=== PATIENT | male | born 1985 | race Caucasian/White ===

== ENCOUNTER 2020-04-26 16:53 | Emergency (ER) | payer BC ==
--- NOTE | 2020-04-26 17:06 | PDOC ---
Rapid Medical Evaluation Time Seen by Provider: 04/26/20 16:59 Medical Evaluation: Allergies Allergy/AdvReac Type Severity Reaction Status Date / Time No Known Allergies Allergy Verified 12/13/14 09:11 04/26/20 17:04 I performed a brief in-person evaluation of this patient. Pt is a 35 y/o male who presents to the ED because he swallowed a toothpick about 24 hours ago. He states he is started to have some pain in his Left upper abdomen now. He denies blood in stool or vomiting blood. Pt states the pain started a few hours ago. Pertinent physical exam findings: No reproducible tenderness to palpation I have ordered the following: abd flat and upright Patient to proceed to ED for further evaluation. Discharge Disposition - Diagnosis Swallowed foreign body - Referrals - Patient Instructions - Post Discharge Activity
[2020-04-26 17:09] VITALS: BP 134/90; PULSE 76; TEMP 98.8; BMI 25.0
--- NOTE | 2020-04-26 17:41 | PDOC ---
History of Present Illness - General Chief Complaint: Foreign Body (FB) Stated Complaint: FOREIGN BODY Time Seen by Provider: 04/26/20 16:59 History Source: Patient Exam Limitations: No Limitations - History of Present Illness Initial Comments: 04/26/20 17:39 35-year-old male presents to ED with left upper abdominal pain. Patient discussed that he swallowed a toothpick last night and is concerned due to the discomfort. Patient states has had no blood in his stool, periods of nausea, or difficulty breathing. Is this a multiple visit Asthma Patient?: No Timing/Duration: 24 hours Severity: moderate Associated Symptoms: denies: nausea/vomiting Past History - Travel History Traveled outside of the country in the last 30 days: No Close contact w/someone who was outside of country & ill: No - Medical History Allergies/Adverse Reactions: Allergies Allergy/AdvReac Type Severity Reaction Status Date / Time No Known Allergies Allergy Verified 04/26/20 17:05 COPD: No - Psycho-Social/Smoking History Patient Lives Alone: No Lives with/in: spouse/SO Smoking History: Never smoked - Substance Abuse Hx (Audit-C & DAST Scrn) How often the patient has a drink containing alcohol: 2-4 times / month Score: In Men: 4 or > Positive; In Women: 3 or > Positive: 2 Screen Result (Pos requires Nsg. Audit-10AR): Negative In the last yr the pt used illegal drug/Rx for NonMed reason: No Score: Yes response is considered Positive: 0 Screen Result (Positive result requires Nsg. DAST-10): Negative Review of Systems - Review of Systems Able to Perform ROS?: No Constitutional: No: Symptoms Reported HEENTM: No: Symptoms Reported Respiratory: No: Symptoms reported Cardiac (ROS): No: Symptoms Reported ABD/GI: Yes: Abdominal cramping : No: Symptoms Reported Musculoskeletal: No: Symptoms Reported Integumentary: No: Symptoms Reported Endocrine: No: Symptoms Reported Hematologic/Lymphatic: No: Symptoms Reported *Physical Exam - Vital Signs Last Vital Signs Temp Pulse Resp BP Pulse Ox 98.8 F 76 18 134/90 99 04/26/20 17:06 04/26/20 17:06 04/26/20 17:06 04/26/20 17:06 04/26/20 17:06 - Physical Exam General Appearance: Yes: Nourished, Appropriately Dressed. No: Apparent Distress HEENT: negative: Pale Conjunctivae Respiratory/Chest: negative: Respiratory Distress Gastrointestinal/Abdominal: positive: Normal Bowel Sounds, Soft, Tenderness (left upper quadrant 2 fingerbreadths below the 12th rib lateral of the epigastric region). negative: Distended Integumentary: positive: Normal Color, Warm, Moist Neurologic: positive: Motor Strength 5/5 (Ambulatory) ED Treatment Course - RADIOLOGY Radiology Studies Ordered: Category Date Time Status ABDOMEN & PELVIS CT W/O CONTR [CT] Stat CT Scan 04/26/20 17:35 Ordered Medical Decision Making - Medical Decision Making 04/26/20 17:42 Chief complaint: Left abdominal pain since this morning. Patient states about the toothpick last evening and is concerned with the pain. Exam: Patient with left upper abdominal pain Plan: Patient went for a flat and upright prior to my examination and I was unable to visualize any free air or foreign body. Measured a toothpick from the pack and it measured 5.8 cm in length with approximately 3 mm in diameter. Patient concerning for immobility versus early part. Patient ordered for abdominal and pelvic CT without contrast. Case then discussed with attending and will send patient to the main ER after CT Discharge - Discharge Information Problems reviewed: Yes Clinical Impression/Diagnosis: Swallowed foreign body - Follow up/Referral Referrals: Aisha Briseno MD [Primary Care Provider] - - Patient Discharge Instructions - Post Discharge Activity
--- NOTE | 2020-04-26 17:53 | PDOC ---
*Physical Exam - Vital Signs Last Vital Signs Temp Pulse Resp BP Pulse Ox 98.8 F 76 18 134/90 99 04/26/20 17:06 04/26/20 17:06 04/26/20 17:06 04/26/20 17:06 04/26/20 17:06 Medical Decision Making - Medical Decision Making 04/26/20 18:20 Swallowed wooden toothpick at approx 1930 last PM, unknown if whole or chewed, mild discomfort started this AM in LLQ, nonradiating, nonmoving, "dull" type, unchanging. No pain meds tried, none needed. No blood in stool, N/V, F/C, D/C, or other sx. Benign abdomen - no TTP, guarding, or rebound tenderness. Pending CTAP, likely d/c home. 04/26/20 18:22 CTAP reviewed - no dense foreign body, obstruction, free air or free fluid seen. Will discharge home with PCP f/u. Return precautions given. Pt understands all discharge instructions and all questions were answered. Discharge - Discharge Information Problems reviewed: Yes Clinical Impression/Diagnosis: Swallowed foreign body Condition: Stable Disposition: HOME - Admission No - Follow up/Referral Referrals: Aisha Briseno MD [Primary Care Provider] - - Patient Discharge Instructions Patient Printed Discharge Instructions: DI for Foreign Body, Swallowed-Adult Additional Instructions: You have been seen for your swallowed toothpick. Your CT scan shows no evidence of an emergency such as a bowel perforation. The toothpick should pass on its own. At this time it's most important to stay hydrated. Follow-up with your primary care doctor within 1 week. Return to the Emergency Department immediately for any worsening abdominal pain, inability to pass stool, blood in stool, or any other new or concerning symptom. - Post Discharge Activity
== END 2020-04-26 18:36 | disposition home or self-care (01) ==
LOC: JERFT 16:53 → JER 16:53
DX: T18.9XXA Foreign body of alimentary tract, part unspecified, initial encounter (principal)
CPT/HCPCS: 74019-TC-FY; 74176-TC; 99284-25

== ENCOUNTER 2021-01-10 11:13 | Emergency (ER) | payer BC ==
[2021-01-10 11:32] VITALS: BP 123/71; PULSE 91; TEMP 98.2; BMI 25.0
[2021-01-10] MEDS ORDERED: KETOROLAC TROMETHAMINE 30 MG/1 ML VIAL IM ONE (11:46)
[2021-01-10] MEDS ORDERED: KETOROLAC TROMETHAMINE 30 MG/1 ML VIAL ONE (12:18)
== END 2021-01-10 13:00 | disposition home or self-care (01) ==
LOC: JERFT 11:13 → JER 11:13 → JERFT 13:00
PROC: 3E0233Z Introduction of Anti-inflammatory into Muscle, Percutaneous Approach (ICD-10-PCS; principal; 2021-01-10)
DX: S92.524A Nondisplaced fracture of middle phalanx of right lesser toe(s), initial encounter for closed fracture (principal)
CPT/HCPCS: 73630-TC-RT-FY; 99284-25

== ENCOUNTER 2024-06-05 14:11 | Emergency (ER) | payer BC ==
[2024-06-05 14:24] VITALS: BP 144/80; PULSE 96; RESP 20; TEMP 97.6; BMI 25.0
[2024-06-05] MEDS: LIDOCAINE 4% PATCH TP ONE (16:10)
[2024-06-05] MEDS ORDERED: LIDOCAINE 4% PATCH TP ONE (16:11)
[2024-06-05 16:17] LABS: BASO % 0.3 % (0-2.0); EOS % 0.7 % (0-4.5); HEMATOCRIT 44.7 % (35.4-49); HEMOGLOBIN 15.4 GM/dL (11.7-16.9); LYMPH % 25.2 % (8-40); MCHC 34.5 g/dl (32.0-35.9); MEAN CELL VOLUME 86.9 fl (80-96); MEAN PLT VOLUME 8.9 fl (7.5-11.1); MONO % 9.2 % (3.8-10.2); NEUT % 64.6 % (42.8-82.8); PLATELET COUNT 224 10^3/uL (134-434); RBC 5.14 M/mm3 (4.00-5.60); RDW 13.1 % (11.9-15.9); WHITE BLOOD COUNT 5.8 K/mm3 (4.0-10.0)
[2024-06-05 16:22] LABS: INR 1.08 (0.83-1.09); PROTHROMBIN TIME (PATIENT) 12.2 SEC (9.7-13.0)
[2024-06-05 16:25] LABS: ACTIVATED PTT 41.7 SECONDS (25.2-36.5)
[2024-06-05 16:39] LABS: POTASSIUM 3.9 mmol/L (3.5-5.1)
[2024-06-05 16:42] LABS: CALCIUM 9.7 mg/dL (8.5-10.1)
[2024-06-05 16:43] LABS: ALBUMIN 4.5 g/dl (3.4-5.0); BLOOD UREA NITROGEN 13.3 mg/dL (7-18)
[2024-06-05 16:44] LABS: MAGNESIUM 2.2 mg/dL (1.8-2.4)
[2024-06-05 16:47] LABS: BILIRUBIN,TOTAL 1.1 mg/dL (0.2-1)
[2024-06-05 17:35] LABS: HIV INTERPRETATION NEGATIVE (NEGATIVE)
[2024-06-05] MEDS: LACTATED RINGERS SOLUTION 1000 ML INFUS.BAG IV ONE (17:51)
[2024-06-05] MEDS ORDERED: IBUPROFEN 400 MG TABLET (FP) PO ONE (19:32)
[2024-06-05] MEDS: IBUPROFEN 400 MG TABLET (FP) PO ONE (19:41)
[2024-06-05] MEDS ORDERED: LIDOCAINE PATCH REMOVAL MC SCH (22:00)
== END 2024-06-05 19:42 | disposition home or self-care (01) ==
LOC: JER 14:11
DX: R07.89 Other chest pain (principal); F41.9 Anxiety disorder, unspecified; R42 Dizziness and giddiness; Z20.822 Contact with and (suspected) exposure to COVID-19
CPT/HCPCS: 0241U-QW; 36415; 71045-TC-FY; 80053; 83735; 84484; 85025; 85610; 85730; 86803; 87389; 93005; 93010; 99285-25